=== PATIENT | male | born 1990 | race Caucasian/White ===

== ENCOUNTER 2018-11-09 20:48 | Inpatient (IN) | payer MEDICAID ==
[~2018-11-09] VITALS: Ht 170.2 cm; Wt 58.2 kg
[2018-11-09 22:40] LABS: BASOPHILS % (AUTO) 0.6 % (0.0-2.0); EOSINOPHILS % (AUTO) 1.3 % (1.0-6.0); HEMATOCRIT 48.6 % (41-53); HEMOGLOBIN 16.5 g/dL (13.5-17.5); LYMPHOCYTES # (AUTO) 3.1 K/uL (1.0-4.8); LYMPHOCYTES % (AUTO) 23.5 % (22.0-44.0); MEAN CORPUSCULAR HEMOGLOBIN 31.6 pg (26.0-34.0); MEAN CORPUSCULAR HGB CONC 33.9 G/dL (31.0-37.0); MEAN CORPUSCULAR VOLUME 93 fL (80-100); MONOCYTES # (AUTO) 0.9 K/uL (0.1-1.0); MONOCYTES % (AUTO) 7.1 % (2.0-9.0); NEUTROPHILS # (AUTO) 8.8 K/uL (1.8-7.7); NEUTROPHILS % (AUTO) 67.5 % (40.0-70.0); PLATELET COUNT (AUTO) 299 K/uL (150-450); RED BLOOD CELL COUNT(AUTO) 5.21 MIL/uL (4.50-5.90); RED CELL DISTRIBUTION WIDTH 12.9 % (11.5-14.5)
[2018-11-09 22:50] LABS: ANION GAP 11 mmol/L (8-16); CALCIUM, TOTAL 8.8 mg/dL (8.8-10.5); CARBON DIOXIDE 27 mmol/L (22-29); CHLORIDE 104 mmol/L (98-107); CREATININE 0.89 mg/dL (0.60-1.30); GLOMERULAR FILTR. RATE CALC > 60 mL/min (>60); GLUCOSE,RANDOM 105 mg/dL (70-110); POTASSIUM 3.9 mmol/L (3.5-5.1); SODIUM SERUM 142 mmol/L (136-145); UREA NITROGEN, BLOOD 9 mg/dL (7-18)
[2018-11-09 22:55] LABS: ALANINE AMINOTRANSFERASE 26 U/L (12-78); ALBUMIN 4.5 g/dL (3.4-5.0); ALKALINE PHOSPHATASE 75 U/L (46-116); ASPARTATE AMINOTRANSFERASE 16 U/L (15-37); BILIRUBIN,TOTAL 0.3 mg/dL (0.1-1.0); TOTAL PROTEIN, SERUM 7.8 g/dL (6.4-8.2)
[2018-11-09] MEDS ORDERED: LORazepam 2 MG TABLET PO PRN (23:45)
[2018-11-09] MEDS ORDERED: ZOLPIDEM TARTRATE 10 MG TABLET PO PRN (23:45)
[2018-11-10 03:15] VITALS: BP 113/64
[2018-11-10 08:25] VITALS: BP 121/66
[2018-11-10] MEDS ORDERED: CYANOCOBALAMIN 1,000 MCG/ML VIAL IM ONE (12:00)
[2018-11-10] MEDS ORDERED: MAGNESIUM HYDROXIDE SUSPENSION 30 ML UDCUP PO PRN (12:00)
[2018-11-10] MEDS ORDERED: OLANZapine 5 MG RAPDIS TABLET PO PRN (12:00)
[2018-11-10] MEDS ORDERED: LOPERAMIDE HCL 2 MG CAPSULE PO PRN ×2 (12:00)
[2018-11-10] MEDS ORDERED: GuaiFENesin/D-METHORPHAN [SUGAR-FREE] 200-20MG/10 ML SYRUP UDCUP PO PRN (12:00)
[2018-11-10] MEDS ORDERED: MAG HYDROX/AL HYDROX/SIMETH ES 30 ML SUSPENSION UDCUP PO PRN (12:00)
[2018-11-10] MEDS ORDERED: ACETAMINOPHEN 325 MG TABLET PO PRN (12:00)
[2018-11-10] MEDS ORDERED: HydrOXYzine PAMOATE 50 MG CAPSULE PO PRN (12:00)
[2018-11-10] MEDS ORDERED: TUBERCULIN, PURIFIED PROTEIN DERIVATIVE 5 TU/0.1 ML SYG ID ONE (12:00)
[2018-11-10] MEDS ORDERED: LORazepam 2 MG TABLET PO PRN (12:00)
[2018-11-10] MEDS ORDERED: PROMETHAZINE HCL 25 MG TABLET PO PRN (12:00)
[2018-11-10 12:05] VITALS: BP 116/59
[2018-11-10] MEDS: THIAMINE HCL 100 MG TABLET PO SCH (17:05)
[2018-11-10 17:17] VITALS: BP 118/68
[2018-11-10] MEDS ORDERED: OLANZapine 10 MG RAPDIS TABLET PO SCH (21:00)
[2018-11-10] MEDS ORDERED: PETROLATUM,WHITE 71 GM JELLY TP PRN (21:45)
[2018-11-10] MEDS ORDERED: ALBUTEROL SULFATE HFA 90 MCG/PUFF 8 GM INHALER IH PRN (21:45)
[2018-11-10] MEDS ORDERED: ONDANSETRON HCL 4 MG TABLET PO PRN (21:45)
[2018-11-10] MEDS ORDERED: CloNIDine HCL 0.1 MG TABLET PO PRN (21:45)
[2018-11-10] MEDS ORDERED: BACITRACIN 28.4 GM OINTMENT TP PRN (21:45)
[2018-11-10] MEDS ORDERED: IBUPROFEN 600 MG TABLET PO PRN (21:45)
[2018-11-10] MEDS ORDERED: BENZOCAINE/MENTHOL LOZENGE MM PRN (21:45)
[2018-11-11 06:42] LABS: BAND NEUTROPHILS % (MANUAL) 0 % (0-5)
[2018-11-11 06:48] LABS: HEMOGLOBIN 15.6 g/dL (13.5-17.5); MEAN CORPUSCULAR HEMOGLOBIN 31.5 pg (26.0-34.0); MEAN CORPUSCULAR HGB CONC 33.3 G/dL (31.0-37.0); MEAN CORPUSCULAR VOLUME 95 fL (80-100); PLATELET COUNT (AUTO) 233 K/uL (150-450); RED BLOOD CELL COUNT(AUTO) 4.97 MIL/uL (4.50-5.90); RED CELL DISTRIBUTION WIDTH 13.1 % (11.5-14.5)
[2018-11-11 07:00] VITALS: BP 103/61
[2018-11-11] MEDS ORDERED: LORazepam 2 MG TABLET PO PRN (07:00)
[2018-11-11 07:09] LABS: ANION GAP 4 mmol/L (8-16); CALCIUM, TOTAL 8.7 mg/dL (8.8-10.5); CARBON DIOXIDE 29 mmol/L (22-29); CHLORIDE 108 mmol/L (98-107); CHOL/HDL RATIO 3.3 (4.2-7.3); CHOLESTEROL 117 mg/dL (131-200); CREATININE 0.77 mg/dL (0.60-1.30); GLOMERULAR FILTR. RATE CALC > 60 mL/min (>60); GLUCOSE,RANDOM 101 mg/dL (70-110); HDL CHOLESTEROL 36 mg/dL (40-60); LDL CHOL (CALC.) 70 mg/dL (0-130); PHOSPHORUS 4.4 mg/dL (2.5-4.9); POTASSIUM 4.8 mmol/L (3.5-5.1); SODIUM SERUM 141 mmol/L (136-145); TRIGLYCERIDES 57 mg/dL (15-150); UREA NITROGEN, BLOOD 12 mg/dL (7-18)
[2018-11-11 08:00] VITALS: BP 107/62
[2018-11-11] MEDS: NALTREXONE HCL 50 MG TABLET PO SCH (08:29)
[2018-11-11] MEDS: THIAMINE HCL 100 MG TABLET PO SCH ×2 (08:29→16:22)
[2018-11-11] MEDS: MULTIVITAMINS WITH MINERALS, THERAPEUTIC TABLET PO SCH (08:29)
[2018-11-11] MEDS: FOLIC ACID 1 MG TABLET PO SCH (08:29)
[2018-11-11] MEDS: OMEPRAZOLE 20 MG CAPSULE PO SCH (08:29)
[2018-11-11] MEDS: DOCUSATE SODIUM 100 MG CAPSULE PO SCH (08:34)
[2018-11-11] MEDS: LORazepam 2 MG TABLET PO SCH ×4 (09:00→20:09)
[2018-11-11] MEDS ORDERED: FLUoxetine HCL 10 MG CAPSULE PO SCH (09:00)
[2018-11-11 10:21] LABS: BASOPHILS % (MANUAL) 1 % (0-2); EOSINOPHILS % (MANUAL) 1 % (1-6); LYMPHOCYTES % (MANUAL) 32 % (22-44); MONOCYTES % (MANUAL) 8 % (2-9); SEGMENTED NEUTROPHILS % 58 % (40-70)
[2018-11-11 14:22] VITALS: BP 125/69
[2018-11-11 16:22] VITALS: BP 125/69
[2018-11-11 16:23] VITALS: BP 125/69
[2018-11-11] MEDS ORDERED: NALT50TA PO (17:07)
[2018-11-11] MEDS ORDERED: PROZ10 PO (17:07)
[2018-11-11] MEDS ORDERED: OLAN10TA22 PO (17:07)
[2018-11-11] MEDS ORDERED: OLANZapine 10 MG RAPDIS TABLET PO SCH (21:00)
[2018-11-12 08:10] VITALS: BP 110/72
[2018-11-12] MEDS: DOCUSATE SODIUM 100 MG CAPSULE PO SCH (09:00)
[2018-11-12] MEDS: LORazepam 2 MG TABLET PO SCH ×2 (09:00→12:56)
[2018-11-12] MEDS ORDERED: FLUoxetine HCL 20 MG CAPSULE PO SCH (09:00)
[2018-11-12] MEDS: OMEPRAZOLE 20 MG CAPSULE PO SCH (09:21)
[2018-11-12] MEDS: MULTIVITAMINS WITH MINERALS, THERAPEUTIC TABLET PO SCH (09:21)
[2018-11-12] MEDS: NALTREXONE HCL 50 MG TABLET PO SCH (09:21)
[2018-11-12] MEDS: THIAMINE HCL 100 MG TABLET PO SCH (09:21)
[2018-11-12] MEDS: FOLIC ACID 1 MG TABLET PO SCH (09:23)
[2018-11-12 09:26] VITALS: BP 112/75
[2018-11-13] MEDS ORDERED: LORazepam 1 MG TABLET PO PRN (07:00)
[2018-11-13] MEDS ORDERED: LORazepam 1 MG TABLET PO SCH (09:00)
[2018-11-14] MEDS ORDERED: LORazepam 1 MG TABLET PO PRN (07:00)
== END 2018-11-12 14:45 | disposition home or self-care (01) | DRG 750 ==
LOC: EMS 20:49 → 3EC 23:30
PROVIDERS: ADMIT Psychiatry & Neurology Psychiatry; ATTEND Psychiatry & Neurology Psychiatry
DX: F25.1 Schizoaffective disorder, depressive type (principal); R45.851 Suicidal ideations; Z59.0 Homelessness; D72.829 Elevated white blood cell count, unspecified; F15.90 Other stimulant use, unspecified, uncomplicated; F17.200 Nicotine dependence, unspecified, uncomplicated; F41.9 Anxiety disorder, unspecified; G47.00 Insomnia, unspecified; K59.00 Constipation, unspecified; F11.10 Opioid abuse, uncomplicated
CPT/HCPCS: 83735; 84100; 85007; 93005; 99406; G0480; J3420

== ENCOUNTER 2022-04-25 18:56 | Emergency (ER) | payer MEDICAID, OTHER ==
[~2022-04-25] VITALS: Ht 157.5 cm; Wt 75.9 kg
[~2022-04-25 18:56] MED LIST: FLUO10CA24 PO; NALT50TA PO; OLAN10TA22 PO
[2022-04-25 18:59] VITALS: BP 133/73
[2022-04-25] MEDS: IBUPROFEN 600 MG TABLET PO ONE (20:06)
== END 2022-04-25 20:10 | disposition home or self-care (01) ==
LOC: EMS 19:45
DX: S29.011A Strain of muscle and tendon of front wall of thorax, initial encounter (principal); F11.10 Opioid abuse, uncomplicated; X58.XXXA Exposure to other specified factors, initial encounter; Y93.89 Activity, other specified; Y92.89 Other specified places as the place of occurrence of the external cause; Y99.8 Other external cause status
CPT/HCPCS: 99282; Z7502; Z7610